=== PATIENT | male | born 1945 | race Caucasian/White ===

== ENCOUNTER 2020-01-31 10:00 | Outpatient (RCR) | payer MEDICARE, OTHER | END 2020-04-12 | disposition home or self-care (01) | LOC: ONC 10:00 | PROVIDERS: ATTEND Radiology Radiation Oncology | DX: Z51.0 Encounter for antineoplastic radiation therapy (principal); C79.51 Secondary malignant neoplasm of bone; Z85.528 Personal history of other malignant neoplasm of kidney; Z90.5 Acquired absence of kidney; I25.10 Atherosclerotic heart disease of native coronary artery without angina pectoris; I10 Essential (primary) hypertension; M19.91 Primary osteoarthritis, unspecified site; Z86.711 Personal history of pulmonary embolism; I25.2 Old myocardial infarction; Z79.82 Long term (current) use of aspirin; Z79.899 Other long term (current) drug therapy | CPT/HCPCS: 77290; 77334; G0463; 77295; 77300; 77336; 77417; 99204 ==

== ENCOUNTER → 2020-11-20 | Outpatient (CLI) | payer MEDICARE, OTHER ==
[~2020-11-20] MED LIST: CATHETER FLUSH 10 ML SYR IV PRN; HOLD METFORMIN - RECEIVED CONTRAST 20 ML VIAL IV SCH; IOHEXOL 350 MG/ML 100 ML (OMNIPAQUE 350) VIAL IV ONE; NS 100 ML (IVPB) BAG IV ONE
--- NOTE | 2020-11-20 15:24 | Diagnostic Imaging Report ---
INDICATION: Kidney neoplasm. TECHNIQUE: The patient was administered 25.2 mCi of technetium 99m MDP intravenously and whole-body imaging was performed after a 3 hour delay. COMPARISON: No prior studies are available for comparison. FINDINGS: Normal uptake of activity by the axial and appendicular skeleton is noted. There is uptake by the right kidney with excretion into the urinary bladder. There is uptake involving the right shoulder in the region of the glenoid which is likely degenerative. No suspicious foci are seen to suggest osseous metastatic disease. There may be some very mild uptake involving right-sided ribs and rib ends near the costochondral junctions bilaterally; however, this could be degenerative. IMPRESSION: No definite scintigraphic evidence of osseous metastatic disease. Dictated by: Dictated on workstation # [id number]
--- NOTE | 2020-11-20 15:28 | Diagnostic Imaging Report ---
PROCEDURE: CT Neck, Chest Abdomen and Pelvis with contrast, Abdomen and Pelvis without. TECHNIQUE: Multiple contiguous axial images were obtained through the neck, chest, abdomen, and pelvis after the uneventful bolus administration of intravenous contrast. Precontrast acquisitions through the abdomen and pelvis were performed. Sagittal and coronal reformations are then performed. Auto Exposure Controls were utilized during the CT exam to meet ALARA standards for radiation dose reduction. INDICATION: Renal cell neoplasm. COMPARISON: No prior CT studies are available for comparison. FINDINGS: CT NECK: Nasopharynx was not included on the exam. Oropharynx is unremarkable. Epiglottis and larynx are unremarkable. No thyroid mass is detected. The submandibular and parotid glands appear to be within normal limits, although the superior aspects of the parotid glands are not included on this exam. No definite cervical lymphadenopathy or fluid collection is seen. IMPRESSION: Limited study of the soft tissues of the neck as all the anatomy was not included. Patient could return and a repeat study could be performed appropriately. No gross abnormality was detected. CT CHEST: No axillary lymphadenopathy is detected. No mediastinal or hilar lymphadenopathy is detected. There is no pericardial or pleural fluid identified. Tiny nodule in the right upper lobe is noted, image 32 series 4, measuring 2 mm. There is some linear scarring or atelectasis in the left lower lobe. Subpleural nodule in the posterolateral right lower lobe, image 47, is noted measuring 4 mm. This may have been present on prior CT from 2009. No other pulmonary abnormalities are seen. IMPRESSION: 1. No evidence of thoracic lymphadenopathy. 2. Pulmonary micronodules, as described. No other significant abnormality is detected. CT ABDOMEN AND PELVIS: No discrete liver mass is identified. Gallbladder is unremarkable. There is no biliary ductal dilatation. Pancreas is unremarkable. Spleen appears to be surgically absent. Left kidney is surgically absent. There are surgical clips in left renal fossa. No recurrent or residual mass is identified. Right kidney is unremarkable. Aorta is nonaneurysmal but calcified. No central retroperitoneal or mesenteric lymphadenopathy is identified. Small and large bowel loops are normal in caliber. There is no free fluid or fluid collection. Bladder is unremarkable. No pelvic lymphadenopathy is seen. Bony structures are nonacute. IMPRESSION: Status post left nephrectomy and splenectomy. There is no evidence of abdominal or pelvic lymphadenopathy or metastatic disease. Dictated by: Dictated on workstation # [id number]
== END ==
LOC: CARD 11:46
PROVIDERS: ATTEND Internal Medicine Hematology & Oncology
DX: C64.9 Malignant neoplasm of unspecified kidney, except renal pelvis (principal); R91.8 Other nonspecific abnormal finding of lung field; Z90.5 Acquired absence of kidney; Z90.81 Acquired absence of spleen
CPT/HCPCS: 70491; 71260; 74178; 78306; A9503

== ENCOUNTER 2021-02-14 10:35 | Outpatient (RCR) | payer MEDICARE, OTHER ==
[2020-11-19 13:38] LABS: BASOPHILS % (AUTO) 0 % (0-10); EOSINOPHILS % (AUTO) 0 % (0-10); HEMATOCRIT 43 % (40-54); HEMOGLOBIN 13.4 g/dL (13.3-17.7); LYMPHOCYTES # (AUTO) 0.8 10^3/uL (1.0-4.0); LYMPHOCYTES % (AUTO) 7 % (12-44); MEAN CORPUSCULAR HEMOGLOBIN 31 pg (25-34); MEAN CORPUSCULAR HGB CONC 32 g/dL (32-36); MEAN CORPUSCULAR VOLUME 97 fL (80-99); MEAN PLATELET VOLUME 11.6 fL (9.0-12.2); MONOCYTES # (AUTO) 0.5 10^3/uL (0.0-1.0); MONOCYTES % (AUTO) 5 % (0-12); NEUTROPHILS # (AUTO) 9.6 10^3/uL (1.8-7.8); NEUTROPHILS % (AUTO) 86 % (42-75); PLATELET COUNT 224 10^3/uL (130-400); WHITE BLOOD COUNT 11.2 10^3/uL (4.3-11.0)
[2020-11-19 14:07] LABS: ALBUMIN 3.7 GM/DL (3.2-4.5); BILIRUBIN,TOTAL 0.3 MG/DL (0.1-1.0); CALCIUM 8.9 MG/DL (8.5-10.1); CREATININE SERUM 1.66 MG/DL (0.60-1.30); POTASSIUM 4.6 MMOL/L (3.6-5.0); TOTAL PROTEIN 6.3 GM/DL (6.4-8.2)
[2020-12-05 09:58] LABS: BASOPHILS % (AUTO) 0 % (0-10); EOSINOPHILS % (AUTO) 0 % (0-10); HEMATOCRIT 39 % (40-54); HEMOGLOBIN 12.8 g/dL (13.3-17.7); LYMPHOCYTES # (AUTO) 1.2 10^3/uL (1.0-4.0); LYMPHOCYTES % (AUTO) 8 % (12-44); MEAN CORPUSCULAR HEMOGLOBIN 31 pg (25-34); MEAN CORPUSCULAR HGB CONC 33 g/dL (32-36); MEAN CORPUSCULAR VOLUME 95 fL (80-99); MEAN PLATELET VOLUME 11.4 fL (9.0-12.2); MONOCYTES # (AUTO) 1.2 10^3/uL (0.0-1.0); MONOCYTES % (AUTO) 8 % (0-12); NEUTROPHILS # (AUTO) 12.8 10^3/uL (1.8-7.8); NEUTROPHILS % (AUTO) 83 % (42-75); PLATELET COUNT 317 10^3/uL (130-400); WHITE BLOOD COUNT 15.4 10^3/uL (4.3-11.0)
[2020-12-05 10:17] LABS: ALBUMIN 3.8 GM/DL (3.2-4.5); BILIRUBIN,TOTAL 0.4 MG/DL (0.1-1.0); CALCIUM 9.1 MG/DL (8.5-10.1); CREATININE SERUM 1.42 MG/DL (0.60-1.30); POTASSIUM 3.8 MMOL/L (3.6-5.0); TOTAL PROTEIN 6.4 GM/DL (6.4-8.2)
[2020-12-24 13:09] LABS: BASOPHILS % (AUTO) 0 % (0-10); EOSINOPHILS # (AUTO) 0.3 10^3/uL (0.0-0.3); EOSINOPHILS % (AUTO) 2 % (0-10); HEMATOCRIT 42 % (40-54); HEMOGLOBIN 13.5 g/dL (13.3-17.7); LYMPHOCYTES # (AUTO) 1.1 10^3/uL (1.0-4.0); LYMPHOCYTES % (AUTO) 9 % (12-44); MEAN CORPUSCULAR HEMOGLOBIN 31 pg (25-34); MEAN CORPUSCULAR HGB CONC 32 g/dL (32-36); MEAN CORPUSCULAR VOLUME 96 fL (80-99); MEAN PLATELET VOLUME 11.7 fL (9.0-12.2); MONOCYTES # (AUTO) 0.9 10^3/uL (0.0-1.0); MONOCYTES % (AUTO) 7 % (0-12); NEUTROPHILS # (AUTO) 10.2 10^3/uL (1.8-7.8); NEUTROPHILS % (AUTO) 81 % (42-75); PLATELET COUNT 273 10^3/uL (130-400); WHITE BLOOD COUNT 12.5 10^3/uL (4.3-11.0)
[2020-12-24 13:29] LABS: ALBUMIN 3.8 GM/DL (3.2-4.5); BILIRUBIN,TOTAL 0.3 MG/DL (0.1-1.0); CALCIUM 9.5 MG/DL (8.5-10.1); CREATININE SERUM 1.51 MG/DL (0.60-1.30); POTASSIUM 4.2 MMOL/L (3.6-5.0); TOTAL PROTEIN 6.5 GM/DL (6.4-8.2)
[~2021-02-14 10:35] MED LIST changes: -CATHETER FLUSH 10 ML SYR IV PRN; -HOLD METFORMIN - RECEIVED CONTRAST 20 ML VIAL IV SCH; -IOHEXOL 350 MG/ML 100 ML (OMNIPAQUE 350) VIAL IV ONE; +NIVOLUMAB 240 MG in NS (IVPB) CANCER CENTER 100 ML IV SCH; -NS 100 ML (IVPB) BAG IV ONE; +NS IV 1000 ML (CANCER CTR) 1,000 ML ONE; +NS IV 1000 ML (CANCER CTR) IV SCH
[2021-02-14 10:47] LABS: BASOPHILS % (AUTO) 0 % (0-10); EOSINOPHILS # (AUTO) 0.1 10^3/uL (0.0-0.3); EOSINOPHILS % (AUTO) 0 % (0-10); HEMATOCRIT 39 % (40-54); HEMOGLOBIN 12.4 g/dL (13.3-17.7); LYMPHOCYTES # (AUTO) 1.2 10^3/uL (1.0-4.0); LYMPHOCYTES % (AUTO) 10 % (12-44); MEAN CORPUSCULAR HEMOGLOBIN 30 pg (25-34); MEAN CORPUSCULAR HGB CONC 32 g/dL (32-36); MEAN CORPUSCULAR VOLUME 96 fL (80-99); MEAN PLATELET VOLUME 11.6 fL (9.0-12.2); MONOCYTES # (AUTO) 0.8 10^3/uL (0.0-1.0); MONOCYTES % (AUTO) 7 % (0-12); NEUTROPHILS # (AUTO) 9.1 10^3/uL (1.8-7.8); NEUTROPHILS % (AUTO) 81 % (42-75); PLATELET COUNT 282 10^3/uL (130-400); WHITE BLOOD COUNT 11.1 10^3/uL (4.3-11.0)
[2021-02-14 11:02] LABS: ALBUMIN 3.9 GM/DL (3.2-4.5); BILIRUBIN,TOTAL 0.4 MG/DL (0.1-1.0); CALCIUM 8.9 MG/DL (8.5-10.1); CREATININE SERUM 1.23 MG/DL (0.60-1.30); POTASSIUM 3.1 MMOL/L (3.6-5.0); TOTAL PROTEIN 6.4 GM/DL (6.4-8.2)
== END 2021-02-17 | disposition home or self-care (01) ==
LOC: ONC 10:35
PROVIDERS: ATTEND Internal Medicine Hematology & Oncology
DX: C64.9 Malignant neoplasm of unspecified kidney, except renal pelvis (principal); C79.51 Secondary malignant neoplasm of bone; E86.0 Dehydration; N19 Unspecified kidney failure; Z90.5 Acquired absence of kidney; Z90.81 Acquired absence of spleen
CPT/HCPCS: 80053; 83615; 84443; 85025; G0463; 96360; 96413; 99213; 99214

== ENCOUNTER → 2021-02-14 | Outpatient (CLI) | payer MEDICARE, OTHER ==
[2021-02-14] MEDS: CATHETER FLUSH 10 ML SYR IV PRN ×2 (11:03→12:01)
--- NOTE | 2021-02-14 13:59 | Diagnostic Imaging Report ---
PROCEDURE: CT Neck, Chest Abdomen and Pelvis with contrast, Abdomen and Pelvis without. TECHNIQUE: Multiple contiguous axial images were obtained through the neck, chest, abdomen, and pelvis after the uneventful bolus administration of intravenous contrast. Precontrast acquisitions through the abdomen and pelvis were performed. Sagittal and coronal reformations are then performed. Auto Exposure Controls were utilized during the CT exam to meet ALARA standards for radiation dose reduction. INDICATION: Clear cell carcinoma of the left kidney. FINDINGS: CT neck: The visualized intracranial structures are unremarkable. There appears to be some opacification of the right half frontal sinus as well as right-sided ethmoid air cells. Posterior nasopharynx and oropharynx are unremarkable. Epiglottis and larynx are unremarkable. No thyroid mass is detected. Bilateral submandibular and parotid glands are unremarkable. No cervical lymphadenopathy is seen. IMPRESSION: Unremarkable CT soft tissue neck study. CT chest: No axillary lymphadenopathy is detected. No mediastinal or hilar lymphadenopathy is detected. There is no pericardial or pleural fluid. Previously noted pulmonary micronodules in right upper and right lower lobe appear stable. No new pulmonary nodules are detected. The bony structures demonstrate expansile lytic lesion of the scapula with involvement of the coracoid process. This has increased since prior exam. IMPRESSION: Stable CT chest since 11/20/2020. There is no thoracic lymphadenopathy. Pulmonary micronodules in right upper and right lower lobe are stable. Expansile lytic lesion of the right scapula suggestive of metastatic lesion. CT abdomen and pelvis: Liver and gallbladder are unremarkable. Pancreas is unremarkable. Spleen is surgically absent. There are postoperative changes of bilateral adrenalectomies. There is also postoperative changes of left nephrectomy. Nephrectomy bed remains stable without evidence of tumor recurrence. Right kidney demonstrates a mixed density lesion along the lateral cortex, stable at 3.7 cm. Area of mixed density along the medial aspect of the right kidney remain stable. No new renal masses detected. Small omental nodule in the right lower quadrant is stable at 7 mm. Aorta is nonaneurysmal. No central retroperitoneal or mesenteric lymphadenopathy is seen. The small and large bowel loops are normal caliber. There is no ascites. The bladder is unremarkable. Prostate is enlarged. No pelvic lymphadenopathy is seen. Bony structures are nonacute. IMPRESSION: 1. Stable CT abdomen and pelvis since exam from 11/20/2020. There are postoperative changes of bilateral adrenalectomy and left nephrectomy. Right renal masses are stable. Right lower quadrant omental nodule is stable. No new abnormality is seen. Dictated by: Dictated on workstation # [id number]
--- NOTE | 2021-02-14 17:08 | Diagnostic Imaging Report ---
EXAM: Nuclear medicine whole body bone scan. DATE: February 14, 2021. INDICATION: 75-year-old male, history of clear cell carcinoma of the left kidney. Evaluation for bone metastasis. COMPARISON: CT neck, chest, abdomen and pelvis February 14, 2021. Nuclear medicine bone scan November 20, 2020. CT neck, chest, abdomen and pelvis November 20, 2020. FINDINGS: 27.2 mCi of technetium labeled MDP radiotracer was administered. Delayed subsequent whole-body bone scan images were subsequently obtained. Nuclear medicine bone scan may not be sensitive for detection of renal malignancy metastasis. The left kidney is absent. There is radiotracer activity projecting in the region of the right scapula which is asymmetric compared to the left. This does correlate with an aggressive destructive bone lesion on same day CT imaging and is compatible with a bone metastasis. There is no additional identified radiotracer avid bone lesion. IMPRESSION: Redemonstrated radiotracer avid lesion of the scapula which is consistent with the site of bone metastasis. Dictated by: Dictated on workstation # [id number]
== END ==
LOC: CARD 12:00
PROVIDERS: ATTEND Internal Medicine Hematology & Oncology
DX: C64.2 Malignant neoplasm of left kidney, except renal pelvis (principal); C79.51 Secondary malignant neoplasm of bone; R91.8 Other nonspecific abnormal finding of lung field; Z90.89 Acquired absence of other organs; Z90.5 Acquired absence of kidney
CPT/HCPCS: 70491; 71260; 74178; 78306; A9503

== ENCOUNTER → 2021-03-28 | Outpatient (CLI) | payer MEDICARE, OTHER ==
[~2021-03-28] MED LIST changes: +GADOBUTROL 10 MMOL/10 ML (GADAVIST) VIAL IV ONE; -NIVOLUMAB 240 MG in NS (IVPB) CANCER CENTER 100 ML IV SCH; -NS IV 1000 ML (CANCER CTR) 1,000 ML ONE; -NS IV 1000 ML (CANCER CTR) IV SCH
--- NOTE | 2021-03-28 17:10 | Diagnostic Imaging Report ---
CLINICAL INDICATION: Patient is having some dizzy spells. Patient has history of kidney cancer. EXAM: MRI of the brain performed without and with 8 cc of Gadavist IV contrast. Sequences include axial DWI, ADC map, axial gradient echo, axial T2, axial FLAIR, axial T1, axial T1 post IV contrast, coronal T1 fat-sat post IV contrast, and sagittal T1 post IV contrast. COMPARISON: None. FINDINGS: There is a metallic area involving the left orbit region which obscures the left globe and orbit. The right orbit and globe shows postop changes likely related to cataracts, but otherwise unremarkable. There is no evidence of acute cerebral infarct, intracranial hemorrhage, or gross mass effect. There is no abnormal IV contrast enhancement. The brain parenchymal volume appears appropriate for patient's age. There are multiple focal and mildly confluent areas of high T2 signal white matter changes involving both cerebral hemispheres and periventricular regions, likely representing chronic small vessel ischemic disease. There is normal howard-white matter distinction. There is no significant midline shift or herniation. The [place] vascular structures show no gross abnormality as visualized. The pituitary gland, sella, and suprasellar regions are unremarkable as visualized. There is no evidence of hydrocephalus. The basal cisterns are unremarkable. The skull, extracranial soft tissue, and orbits are unremarkable. There is consolidation of the right frontal sinus region and moderate consolidation involving the ethmoid sinus region and involving the right maxillary sinus. Temporal bones show no significant abnormality. IMPRESSION: 1: There is no evidence of acute intracranial process. There is no abnormal IV contrast enhancement. There is no evidence of metastatic disease. 2: Age related brain parenchymal changes with chronic small vessel ischemic disease and leukoaraiosis. 3: Paranasal sinus disease. Results of this report discussed with Dr. Amanda via the telephone on 03/28/2021 at 1705 hours. Dictated by: Dictated on workstation # [id number]
== END ==
LOC: RAD 16:15
PROVIDERS: ATTEND Radiology Radiation Oncology
DX: G31.1 Senile degeneration of brain, not elsewhere classified (principal); I67.81 Acute cerebrovascular insufficiency; J32.9 Chronic sinusitis, unspecified
CPT/HCPCS: 70553

== ENCOUNTER → 2021-05-20 | Outpatient (CLI) | payer MEDICARE, OTHER ==
[~2021-05-20] MED LIST changes: +CATHETER FLUSH 10 ML SYR IV PRN; -GADOBUTROL 10 MMOL/10 ML (GADAVIST) VIAL IV ONE; +HOLD METFORMIN - RECEIVED CONTRAST 20 ML VIAL IV SCH; +IOHEXOL 350 MG/ML 100 ML (OMNIPAQUE 350) VIAL IV ONE; +NS 100 ML (IVPB) BAG IV ONE
--- NOTE | 2021-05-20 12:55 | Diagnostic Imaging Report ---
PROCEDURE: CT Neck, Chest Abdomen and Pelvis with contrast, Abdomen and Pelvis without. TECHNIQUE: Multiple contiguous axial images were obtained through the neck, chest, abdomen, and pelvis after the uneventful bolus administration of intravenous contrast. Precontrast acquisitions through the abdomen and pelvis were performed. Sagittal and coronal reformations are then performed. Auto Exposure Controls were utilized during the CT exam to meet ALARA standards for radiation dose reduction. INDICATION: Left-sided renal cell carcinoma post nephrectomy for a followup surveillance. It is compared with CT neck, chest, abdomen and pelvis performed 02/14/2021. TECHNIQUE: Oral contrast media was administered post IV contrast-enhanced CT neck, chest, abdomen and pelvis performed with multiplanar reconstructions. NECK: Nasopharynx, oropharynx and hypopharynx unremarkable. The prevertebral and retropharyngeal spaces unremarkable. No cervical lymphadenopathy. There is chronic degenerative changes to the cervical spine with multilevel chronic stenoses greatest at C5-C6 stable. No findings of cervical involvement by metastatic disease. CHEST: Lytic lesion in the right scapula involving the glenoid neck and extending into the coracoid with cortical breakthrough and mild expansion shows no significant change, no pathological fracture or intra-articular extension. No new bony pathology found. A few benign-appearing subpleural micronodules in the right lung of 3 to 4 mm unchanged. No suspicious lung mass or spiculated lesion. No axillary, hilar or mediastinal lymphadenopathy. No evidence for pneumonia. No pleural or pericardial effusion. The thoracic aorta is patent and nonaneurysmal. ABDOMEN AND PELVIS: Left nephrectomy and presumed bilateral adrenalectomies performed. No mass or fluid collections within the operative beds. A tiny 2 to 3 mm low-density nodule in the right hepatic lobe of the dome stable, too small to be characterized further but likely cystic. No new or suspect liver mass. No bile duct dilatation. The gallbladder unremarkable. Pancreas is unremarkable. Spleen surgically absent. Predominantly fatty nodule mildly effaces the lateral cortex of the lower pole of the right kidney and is unchanged from the previous measuring 3.9 x 2.7 cm. No mesenteric mass. No abdominal pelvic lymphadenopathy. There is no bowel, biliary or urinary tract obstruction. The pelvic sidewalls and inguinal canals unremarkable. Prostate and urinary bladder unremarkable. No suspicious lytic or sclerotic abdominal pelvic bony lesion. IMPRESSION: NECK: Stable negative neck CT CHEST: Stable expansile lytic lesion right scapula without appreciable pathological fracture, no new bony pathology with unchanged likely benign subpleural micronodules on the right stable. ABDOMEN AND PELVIS: Peripherally fatty and centrally soft tissue nodule in the right flank effaces the contour of the right kidney unchanged from prior punctate likely cyst in the right hepatic lobe chronic stable postoperative changes. No lymphadenopathy or suspicious bony lesion and no adverse development or acute appearing findings. Dictated by: Dictated on workstation # [id number]
--- NOTE | 2021-05-20 15:38 | Diagnostic Imaging Report ---
INDICATION: Renal cell carcinoma. TECHNIQUE: Patient received 26.8 mCi dose intravenous technetium-99m MDP, and after three hours, whole-body planar imaging performed. COMPARISON: The study is compared with similarly performed exam dated 02/14/2021. FINDINGS: There is elevated uptake in the right scapula at the site of lytic changes present on earlier performed CT. The remaining axial and appendicular skeleton showed no additional areas of abnormal uptake. The calvarium, ribs, sternum, manubrium, and spine are unremarkable. IMPRESSION: Abnormal uptake isolated to the right scapula where a lytic lesion is present on CT. No new site or adverse interval development. Dictated by: Dictated on workstation # [id number]
== END ==
LOC: CARD 11:11
PROVIDERS: ATTEND Nurse Practitioner Adult Health
DX: C64.2 Malignant neoplasm of left kidney, except renal pelvis (principal); M89.9 Disorder of bone, unspecified; R91.8 Other nonspecific abnormal finding of lung field; Z90.5 Acquired absence of kidney
CPT/HCPCS: 70491; 71260; 74178; 78306; A9503

== ENCOUNTER → 2021-05-22 | Outpatient (RCR) | payer MEDICARE, OTHER ==
[2021-03-28 13:22] LABS: BASOPHILS % (AUTO) 0 % (0-10); EOSINOPHILS % (AUTO) 0 % (0-10); HEMATOCRIT 38 % (40-54); HEMOGLOBIN 12.2 g/dL (13.3-17.7); LYMPHOCYTES # (AUTO) 0.7 10^3/uL (1.0-4.0); LYMPHOCYTES % (AUTO) 8 % (12-44); MEAN CORPUSCULAR HEMOGLOBIN 30 pg (25-34); MEAN CORPUSCULAR HGB CONC 32 g/dL (32-36); MEAN CORPUSCULAR VOLUME 93 fL (80-99); MEAN PLATELET VOLUME 11.4 fL (9.0-12.2); MONOCYTES # (AUTO) 0.7 10^3/uL (0.0-1.0); MONOCYTES % (AUTO) 7 % (0-12); NEUTROPHILS # (AUTO) 7.8 10^3/uL (1.8-7.8); NEUTROPHILS % (AUTO) 84 % (42-75); PLATELET COUNT 292 10^3/uL (130-400); WHITE BLOOD COUNT 9.3 10^3/uL (4.3-11.0)
[2021-03-28 13:46] LABS: ALBUMIN 3.9 GM/DL (3.2-4.5); BILIRUBIN,TOTAL 0.4 MG/DL (0.1-1.0); CALCIUM 9.1 MG/DL (8.5-10.1); CREATININE SERUM 1.57 MG/DL (0.60-1.30); POTASSIUM 2.9 MMOL/L (3.6-5.0); TOTAL PROTEIN 6.5 GM/DL (6.4-8.2)
[2021-03-28 14:22] LABS: MAGNESIUM 2.2 MG/DL (1.6-2.4)
[2021-04-03 13:18] LABS: CALCIUM 9.1 MG/DL (8.5-10.1); CREATININE SERUM 1.34 MG/DL (0.60-1.30); MAGNESIUM 2.1 MG/DL (1.6-2.4); POTASSIUM 2.9 MMOL/L (3.6-5.0)
[2021-05-20 11:06] LABS: BASOPHILS % (AUTO) 0 % (0-10); EOSINOPHILS # (AUTO) 0.1 10^3/uL (0.0-0.3); EOSINOPHILS % (AUTO) 1 % (0-10); HEMATOCRIT 38 % (40-54); HEMOGLOBIN 12.1 g/dL (13.3-17.7); LYMPHOCYTES # (AUTO) 0.9 10^3/uL (1.0-4.0); LYMPHOCYTES % (AUTO) 7 % (12-44); MEAN CORPUSCULAR HEMOGLOBIN 29 pg (25-34); MEAN CORPUSCULAR HGB CONC 32 g/dL (32-36); MEAN CORPUSCULAR VOLUME 92 fL (80-99); MEAN PLATELET VOLUME 11.3 fL (9.0-12.2); MONOCYTES # (AUTO) 0.9 10^3/uL (0.0-1.0); MONOCYTES % (AUTO) 7 % (0-12); NEUTROPHILS % (AUTO) 85 % (42-75); PLATELET COUNT 291 10^3/uL (130-400)
[2021-05-20 11:30] LABS: ALBUMIN 3.8 GM/DL (3.2-4.5); BILIRUBIN,TOTAL 0.5 MG/DL (0.1-1.0); CALCIUM 8.9 MG/DL (8.5-10.1); CREATININE SERUM 1.31 MG/DL (0.60-1.30); POTASSIUM 3.7 MMOL/L (3.6-5.0); TOTAL PROTEIN 6.4 GM/DL (6.4-8.2)
[~2021-05-22] MED LIST changes: -CATHETER FLUSH 10 ML SYR IV PRN; -HOLD METFORMIN - RECEIVED CONTRAST 20 ML VIAL IV SCH; -IOHEXOL 350 MG/ML 100 ML (OMNIPAQUE 350) VIAL IV ONE; -NS 100 ML (IVPB) BAG IV ONE; +NS IV 1000 ML (CANCER CTR) 1,000 ML ONE; +POTASSIUM CHL INJ (CANCER CTR) 20 MEQ in NS IV 1000 ML (CANCER CTR) 1,000 ML IV ONE
== END | disposition home or self-care (01) ==
LOC: ONC 02-21 13:49
PROVIDERS: ATTEND Internal Medicine Hematology & Oncology
DX: C64.2 Malignant neoplasm of left kidney, except renal pelvis (principal); C79.51 Secondary malignant neoplasm of bone; E86.0 Dehydration; N19 Unspecified kidney failure; Z90.5 Acquired absence of kidney; Z90.81 Acquired absence of spleen; Z79.82 Long term (current) use of aspirin; Z79.891 Long term (current) use of opiate analgesic; Z79.899 Other long term (current) drug therapy
CPT/HCPCS: 36415; 77290; 77295; 77300; 77334; 77336; 77417; 80048; 80053; 83615; 83735; 84443; 85025; 96365; 96366; 99213

== ENCOUNTER → 2021-08-15 | Outpatient (CLI) | payer MEDICARE, OTHER ==
[~2021-08-15] MED LIST changes: +BARIUM SUSPENSION 2.1% (VANILLA SILQ) 450 ML PO ONE; +CATHETER FLUSH 10 ML SYR IV PRN; +HOLD METFORMIN - RECEIVED CONTRAST 20 ML VIAL IV SCH; +IOHEXOL 350 MG/ML 100 ML (OMNIPAQUE 350) VIAL IV ONE; +NS 100 ML (IVPB) BAG IV ONE; -NS IV 1000 ML (CANCER CTR) 1,000 ML ONE; -POTASSIUM CHL INJ (CANCER CTR) 20 MEQ in NS IV 1000 ML (CANCER CTR) 1,000 ML IV ONE
[2021-08-15] MEDS: CATHETER FLUSH 10 ML SYR IV PRN ×2 (10:56→11:23)
--- NOTE | 2021-08-15 13:25 | Diagnostic Imaging Report ---
PROCEDURE: CT chest with contrast, CT abdomen and pelvis with and without contrast. TECHNIQUE: Pre and post intravenous contrast axial imaging of the abdomen and pelvis and post contrast axial imaging of the chest were performed. Auto Exposure Controls were utilized during the CT exam to meet ALARA standards for radiation dose reduction. INDICATION: Left kidney carcinoma, status post nephrectomy. COMPARISON: Comparison is made with prior CT from 05/20/2021. CT CHEST: No axillary lymphadenopathy is detected. Shotty lymph nodes in the mediastinum appear similar to prior exam. No definite hilar lymphadenopathy is detected. There is no pericardial or pleural fluid. Tiny subpleural nodules noted in the right upper lobe appear similar to prior exam. Subpleural nodule in the left lower lobe is stable as well. Subpleural nodule in the right lower lobe is stable. No new masses are detected. The expansile lytic lesion involving the right scapula appears similar to prior exam. IMPRESSION: Stable CT chest since study from 05/20/2021. CT ABDOMEN AND PELVIS: No discrete liver mass is identified. Gallbladder is unremarkable. There is no biliary ductal dilatation. Pancreas is unremarkable. Spleen is surgically absent. Left kidney is surgically absent. There is soft tissue that is located in the left renal fossa, which appears inseparable from the pancreatic tail. This could indeed represent a portion of the pancreatic tail, although a focal recurrence cannot be entirely excluded. This area measures 3.7 x 3.1 cm. The mixed-density fatty lesion along the lateral aspect of the right kidney appears to be fairly stable at 4.2 x 2.8 cm. Aorta is nonaneurysmal. No central retroperitoneal lymphadenopathy is seen. There are multiple surgical clips in the central retroperitoneum. Bowel loops are normal in caliber. There is no ascites. Bladder is unremarkable. Prostate is enlarged. Bony structures are nonacute. IMPRESSION: 1. There is some soft tissue prominence in the left renal fossa, as described above. It is uncertain if this represents focal recurrence versus tissue from the pancreatic tail. This does appear to be more prominent when compared with prior exams. 2. Prostatomegaly. 3. No other significant abnormality is detected. Dictated by: Dictated on workstation # [id number]
--- NOTE | 2021-08-15 16:33 | Diagnostic Imaging Report ---
INDICATION: History of left renal carcinoma. COMPARISON: CT from same day. Tc-99m MDP 27 mCi IV FINDINGS: The skeleton was imaged in anterior and posterior views with the moving gamma camera. There is normal distribution of tracer throughout the skeleton. There is asymmetric uptake involving the lateral superior margins of the right scapula near the glenohumeral joint space. This corresponds with erosive soft tissue mass seen on CT from earlier the same day. Note is made of absence of activity within the left renal fossa consistent with previous left nephrectomy. IMPRESSION: Abnormal activity involving the right scapula consistent with metastatic osteolytic lesion seen on CT from earlier the same day. Dictated by: Dictated on workstation # [id number]
== END ==
LOC: CARD 12:00
PROVIDERS: ATTEND Internal Medicine Hematology & Oncology
DX: C64.2 Malignant neoplasm of left kidney, except renal pelvis (principal); C79.51 Secondary malignant neoplasm of bone; N40.1 Benign prostatic hyperplasia with lower urinary tract symptoms; Z90.5 Acquired absence of kidney
CPT/HCPCS: 71260; 74178; 78306; A9503

== ENCOUNTER 2021-08-22 13:46 | Outpatient (RCR) | payer MEDICARE, OTHER ==
[2021-08-15 10:18] LABS: BASOPHILS % (AUTO) 0 % (0-10); EOSINOPHILS # (AUTO) 0.2 10^3/uL (0.0-0.3); EOSINOPHILS % (AUTO) 1 % (0-10); HEMATOCRIT 39 % (40-54); HEMOGLOBIN 12.5 g/dL (13.3-17.7); LYMPHOCYTES # (AUTO) 0.8 10^3/uL (1.0-4.0); LYMPHOCYTES % (AUTO) 6 % (12-44); MEAN CORPUSCULAR HEMOGLOBIN 30 pg (25-34); MEAN CORPUSCULAR HGB CONC 32 g/dL (32-36); MEAN CORPUSCULAR VOLUME 94 fL (80-99); MEAN PLATELET VOLUME 11.6 fL (9.0-12.2); MONOCYTES % (AUTO) 8 % (0-12); NEUTROPHILS # (AUTO) 10.6 10^3/uL (1.8-7.8); NEUTROPHILS % (AUTO) 84 % (42-75); PLATELET COUNT 267 10^3/uL (130-400); WHITE BLOOD COUNT 12.7 10^3/uL (4.3-11.0)
[2021-08-15 10:37] LABS: BILIRUBIN,TOTAL 0.4 MG/DL (0.1-1.0); CALCIUM 9.5 MG/DL (8.5-10.1); CREATININE SERUM 1.57 MG/DL (0.60-1.30); POTASSIUM 4.3 MMOL/L (3.6-5.0); TOTAL PROTEIN 6.8 GM/DL (6.4-8.2)
[~2021-08-22 13:46] MED LIST changes: -BARIUM SUSPENSION 2.1% (VANILLA SILQ) 450 ML PO ONE; -CATHETER FLUSH 10 ML SYR IV PRN; -HOLD METFORMIN - RECEIVED CONTRAST 20 ML VIAL IV SCH; -IOHEXOL 350 MG/ML 100 ML (OMNIPAQUE 350) VIAL IV ONE; -NS 100 ML (IVPB) BAG IV ONE; +NS IV 1000 ML (CANCER CTR) 1,000 ML ONE
== END 2021-11-01 | disposition home or self-care (01) ==
LOC: ONC 13:46
PROVIDERS: ATTEND Internal Medicine Hematology & Oncology
DX: C64.2 Malignant neoplasm of left kidney, except renal pelvis (principal); C79.51 Secondary malignant neoplasm of bone; E03.2 Hypothyroidism due to medicaments and other exogenous substances; E86.0 Dehydration; N19 Unspecified kidney failure; Z90.5 Acquired absence of kidney; Z90.81 Acquired absence of spleen; Z79.82 Long term (current) use of aspirin; Z79.891 Long term (current) use of opiate analgesic; Z79.899 Other long term (current) drug therapy
CPT/HCPCS: 80053; 83615; 84443; 85025; 96360; 99213

== ENCOUNTER 2021-11-14 09:45 | Outpatient (RCR) | payer MEDICARE, OTHER ==
[2021-11-14 10:11] LABS: BASOPHILS % (AUTO) 0 % (0-10); EOSINOPHILS # (AUTO) 0.2 10^3/uL (0.0-0.3); EOSINOPHILS % (AUTO) 1 % (0-10); HEMATOCRIT 43 % (40-54); HEMOGLOBIN 13.7 g/dL (13.3-17.7); LYMPHOCYTES % (AUTO) 8 % (12-44); MEAN CORPUSCULAR HEMOGLOBIN 30 pg (25-34); MEAN CORPUSCULAR HGB CONC 32 g/dL (32-36); MEAN CORPUSCULAR VOLUME 93 fL (80-99); MEAN PLATELET VOLUME 11.7 fL (9.0-12.2); MONOCYTES # (AUTO) 1.1 10^3/uL (0.0-1.0); MONOCYTES % (AUTO) 10 % (0-12); NEUTROPHILS # (AUTO) 9.5 10^3/uL (1.8-7.8); NEUTROPHILS % (AUTO) 80 % (42-75); PLATELET COUNT 265 10^3/uL (130-400); WHITE BLOOD COUNT 11.8 10^3/uL (4.3-11.0)
[2021-11-14 10:29] LABS: ALBUMIN 3.9 GM/DL (3.2-4.5); BILIRUBIN,TOTAL 0.4 MG/DL (0.1-1.0); CALCIUM 9.1 MG/DL (8.5-10.1); CREATININE SERUM 1.39 MG/DL (0.60-1.30); POTASSIUM 3.9 MMOL/L (3.6-5.0); TOTAL PROTEIN 6.5 GM/DL (6.4-8.2)
[2021-11-14] MEDS ORDERED: NS IV 1000 ML (CANCER CTR) 1,000 ML ONE (11:10)
== END 2021-12-02 | disposition home or self-care (01) ==
LOC: ONC 09:45
PROVIDERS: ATTEND Internal Medicine Hematology & Oncology
DX: C64.2 Malignant neoplasm of left kidney, except renal pelvis (principal); C64.1 Malignant neoplasm of right kidney, except renal pelvis; C79.51 Secondary malignant neoplasm of bone; C79.71 Secondary malignant neoplasm of right adrenal gland; C79.72 Secondary malignant neoplasm of left adrenal gland; C77.9 Secondary and unspecified malignant neoplasm of lymph node, unspecified; E03.8 Other specified hypothyroidism; I12.9 Hypertensive chronic kidney disease with stage 1 through stage 4 chronic kidney disease, or unspecified chronic kidney disease; N18.30 Chronic kidney disease, stage 3 unspecified; Z90.5 Acquired absence of kidney; Z90.81 Acquired absence of spleen; Z90.89 Acquired absence of other organs
CPT/HCPCS: 80053; 83615; 84443; 85025; 96360; 96367

== ENCOUNTER → 2021-11-14 | Outpatient (CLI) | payer MEDICARE, OTHER ==
[~2021-11-14] MED LIST changes: +BARIUM SUSPENSION 2.1% (VANILLA SILQ) 450 ML PO ONE; +HOLD METFORMIN - RECEIVED CONTRAST 20 ML VIAL IV SCH; +IOHEXOL 350 MG/ML 100 ML (OMNIPAQUE 350) VIAL IV ONE; +NS 100 ML (IVPB) BAG IV ONE; -NS IV 1000 ML (CANCER CTR) 1,000 ML ONE
--- NOTE | 2021-11-14 11:49 | Diagnostic Imaging Report ---
EXAMINATION: CT chest with intravenous contrast, CT abdomen and pelvis without and with intravenous contrast. TECHNIQUE: Pre and post intravenous contrast axial imaging of the abdomen and pelvis and post contrast axial imaging of the chest were performed. All CT scans use one or more of the following dose optimizing techniques: automated exposure control, MA and/or KvP adjustment based on patient size and exam type or iterative reconstruction. HISTORY: MALIGNANT NEOPLASM OF LEFT KIDNEY COMPARISON: 08/15/2021 FINDINGS: Thyroid: The thyroid is normal. Mediastinum: Heart size is normal without significant pericardial effusion. Calcifications of the aorta and coronary vessels. Thoracic aorta is normal in caliber. No suspicious lymphadenopathy. Lungs and airways: The lungs are clear without consolidation, pleural effusion, or pneumothorax. There are numerous stable scattered calcified granulomas within the lungs. No new suspicious pulmonary lesion. The airways are normal. Solid organs: The liver is normal without focal lesion. The gallbladder is normal. There is no biliary ductal dilation. Pancreas is normal. The spleen is nonvisualized and may be surgically absent. Adrenal glands are nonvisualized and may be surgically absent. The left kidney is surgically absent. No suspicious soft tissue lesion is seen within the nephrectomy bed. 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 No hydronephrosis. Bowel: The stomach and small bowel are normal without obstruction. The colon is unremarkable. No findings of acute appendicitis. Peritoneum: There is no intraperitoneal free fluid or free air. No suspicious lymphadenopathy. Vasculature: Calcification of the aorta without aneurysm. Musculoskeletal: Degenerative changes of the spine without suspicious osseous lesion or compression fracture. Pelvis: The prostate gland is enlarged. The urinary bladder is normal. IMPRESSION: 1. No findings of residual, recurrent, or metastatic disease. 2. No other acute abnormality in the chest, abdomen, or pelvis. Dictated by: Dictated on workstation # [id number]
--- NOTE | 2021-11-14 17:24 | Diagnostic Imaging Report ---
Exam: Nuclear medicine whole body bone scan. Date: November 14, 2021. Indication: 76-year-old male, history of left renal malignancy. Evaluation for bone metastasis. Comparison: Nuclear medicine whole body bone scan August 15, 2021. CT chest, abdomen and pelvis November 14, 2021. CT chest, abdomen and pelvis July 16, 2021. Findings: 27.2 mCi of technetium labeled MDP was administered. Delayed whole-body bone scan images were subsequently obtained. It should be noted that bone scan may be reduced in sensitivity for detection of renal cell carcinoma and metastasis. There is absence of the left kidney. There is asymmetric radiotracer uptake in the region of the right scapula. This is similar in appearance to the prior bone scan. There is a destructive bone lesion of the right scapula. This is consistent with a bone metastasis. Impression: 1. 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 2. No new identified site of bone metastasis. Dictated by: Dictated on workstation # [id number]
== END ==
LOC: CARD 11:00
PROVIDERS: ATTEND Internal Medicine Hematology & Oncology
DX: C64.2 Malignant neoplasm of left kidney, except renal pelvis (principal); C79.51 Secondary malignant neoplasm of bone
CPT/HCPCS: 71260; 74178; 78306; A9503